=== PATIENT | female | born 1950 | race Caucasian/White ===

== ENCOUNTER 2016-08-04 12:20 | Day surgery (SDC) | payer MEDICARE, OTHER ==
[2016-08-04] MEDS ORDERED: PROPOFOL 10 MG/ML VIAL IV ONE (14:00)
[2016-08-04] MEDS ORDERED: MIDAZOLAM HCL 2MG/2ML VIAL IV ONE (14:00)
[2016-08-04] MEDS ORDERED: LIDOCAINE 2% MDV (20MG/ML) 20ML VIAL IV ONE (14:00)
--- NOTE | 2016-08-09 11:23 | Operative Note ---
DATE OF SURGERY: 08/04/2016 OPERATION: ESOPHAGOGASTRODUODENOSCOPY with Goldman dilation. PREOPERATIVE DIAGNOSIS: Dysphagia and abnormal esophagogram. POSTOPERATIVE DIAGNOSIS: Small hiatal hernia, otherwise normal exam. PROCEDURE: After informed consent was obtained from the patient, she was placed in the left lateral decubitus position in the endoscopy suite, sedated and monitored by the department of anesthesia. A well-lubricated XAL490 gastroscope was placed in the posterior oropharynx and under direct visualization passed to the proximal esophagus. The endoscope was advanced through the proximal, mid, and distal esophagus. There was a small hiatal hernia with a trivial ring at the GE junction. The GE junction was widely patent. No resistance was noted passing the endoscope through the esophagus into the gastric body, antrum, pylorus, duodenal bulb and sweep. The pylorus, duodenal bulb and sweep, gastric body, and antrum were unremarkable. J-turn views of the proximal stomach were unremarkable. The endoscope was then straightened and retracted from the patient. No new findings or abnormalities were identified. At this point, a 52 [place] Goldman dilator was passed to the level of the proximal, mid, and distal esophagus without resistance being noted. There was no heme on the dilator. The patient was taken to the recovery area. Her symptoms should be monitored since the dilation was performed to determine its efficacy. As always, thank you for allowing me to participate in the healthcare of your patients. CC: Qing DESOUZA Dr.
== END 2016-08-04 14:20 | disposition home or self-care (01) ==
LOC: HOP 12:20
PROVIDERS: ATTEND Internal Medicine Gastroenterology
DX: K44.9 Diaphragmatic hernia without obstruction or gangrene (principal); R13.10 Dysphagia, unspecified; E03.9 Hypothyroidism, unspecified

== ENCOUNTER 2017-03-21 20:06 | Emergency (ER) | payer MEDICARE, OTHER ==
[2017-03-21 20:22] LABS: URINE APPEARANCE CLEAR; URINE BILIRUBIN NEGATIVE (NEGATIVE); URINE BLOOD NEGATIVE (NEGATIVE); URINE COLOR YELLOW; URINE KETONE 15 mg/dL (NEGATIVE); URINE LEUKOCYTE ESTERASE NEGATIVE (NEGATIVE); URINE NITRITE NEGATIVE (NEGATIVE); URINE PROTEIN NEGATIVE (NEGATIVE); URINE UROBILINOGEN 0.2 E.U./dL (0.20 - 1.00)
[2017-03-21] MEDS ORDERED: ONDANSETRON 4 MG ODT TABLET SL ONE (20:59)
--- NOTE | 2017-03-21 21:02 | Emergency Department Record ---
History of Present Illness - General Chief complaint: Nausea, Vomiting, Diarrhea Stated complaint: NAUSEA,TINGLING FELLING IN HANDS Time Seen by Provider: 03/21/17 20:36 Source: Patient Mode of Arrival: Ambulatory Limitations: No limitations - History of Present Illness Initial comments: 66 yo female presents to ED for evaluation of an episode of lightheadedness, nausea, and weakness associated with tingling in her hands while using the restroom this evening. Patient reports she was concerned that she was having a heart attack, denies chest pain symptoms or difficulty in breathing symptoms. Patient also reports lower abdominal pain that may be her "colitis" coming back. Patient denies history of heart or lung problems at her baseline. MD complaint: Abdominal pain, Nausea Onset/Timin -: Hour(s) Location: Other (suprapubic region) Severity: Mild Quality: Aching Consistency: Constant Improves with: None Worsens with: None Associated Symptoms: Denies other symptoms - Related Data Allergies Allergy/AdvReac Type Severity Reaction Status Date / Time meperidine HCl [From Demerol] Allergy VOMITING Verified 11/17/15 22:19 Travel Screening - Travel/Exposure Within Last 30 Days Have you traveled within the last 30 days?: No - Travel/Exposure Within Last Year Have you traveled outside the [place] in the last year?: No - Additonal Travel Details Have you been exposed to anyone with a communicable illness?: No - Travel Symptoms Symptom Screening: None Review of Systems Constitutional: Denies: Chills, Fever, Malaise, Night sweats Eyes: Denies: Eye discharge, Eye pain ENT: Denies: Congestion, Ear pain, Epistaxis Respiratory: Denies: Cough, Dyspnea Cardiovascular: Denies: Chest pain, Dyspnea on exertion Endocrine: Denies: Fatigue, Heat or cold intolerance Gastrointestinal: Reports: Abdominal pain, Nausea. Denies: Vomiting Genitourinary: Denies: Incontinence, Retention Musculoskeletal: Denies: Arthralgia, Back pain, Gout, Joint swelling Skin: Denies: Bruising, Change in color Neurological: Denies: Abnormal gait, Confusion, Headache, Seizure Psychiatric: Denies: Anxiety Hematological/Lymphatic: Denies: Anemia, Blood Clots Past Medical History - SOCIAL HISTORY Smoking Status: Former smoker Alcohol Use: None Drug Use: None - RESPIRATORY Hx Respiratory Disorders: Yes Hx Sleep Apnea: Yes Hx of CPAP: No - CARDIOVASCULAR Hx Cardio Disorders: No - NEURO Hx Neuro Disorders: Yes Hx of Migraines: Yes - GI Hx GI Disorders: Yes Hx Reflux: Yes Comment:: dysphagia "clears throat constantly" hx of microscopic colitis - Hx Genitourinary Disorders: No - ENDOCRINE Hx Endocrine Disorders: Yes Hx Thyroid Disease: Yes - MUSCULOSKELETAL Hx Musculoskeletal Disorders: No - PSYCH Hx Psych Problems: Yes Hx Anxiety: Yes - HEMATOLOGY/ONCOLOGY Hx Hematology/Oncology Disorders: Yes Hx Blood Transfusions: Yes (1982 w/ childbirth) Family Medical History Any Significant Family History?: Yes Family Hx Comment (NOT TO BE USED IN PLACE OF ITEMS BELOW): colon problems with brother and niece Hx Cancer: Brother/Sister Hx Heart Disease: Mother Physical Exam - General General Appearance: Alert, Oriented x3, Cooperative, No acute distress Limitations: No limitations - Head Head exam: Atraumatic, Normocephalic, Normal inspection Head exam detail: negative: Abrasion, Contusion, Nash's sign, General tenderness, Hematoma, Laceration - Eye Eye exam: Normal appearance. negative: Conjunctival injection, Periorbital swelling, Periorbital tenderness, Scleral icterus - ENT Ear exam: negative: Auricular hematoma, Auricular trauma Nasal Exam: negative: Active bleeding, Discharge, Dried blood, Foreign body Mouth exam: negative: Drooling, Laceration, Muffled voice, Tongue elevation - Neck Neck exam: Normal inspection. negative: Meningismus, Tenderness - Respiratory Respiratory exam: Normal lung sounds bilaterally. negative: Rales, Respiratory distress, Rhonchi, Stridor - Cardiovascular Cardiovascular Exam: Regular rate, Normal rhythm, Normal heart sounds - GI/Abdominal GI/Abdominal exam: Soft, Tenderness (Mild TTP suprapubic region on examination, no rebound or guarding are present). negative: Rebound, Rigid - Rectal Rectal exam: Deferred - exam: Deferred - Extremities Extremities exam: Normal inspection. negative: Calf tenderness, Pedal edema, Tenderness - Back Back exam: Denies: CVA tenderness (R), CVA tenderness (L) - Neurological Neurological exam: Alert, Normal gait, Oriented X3 - Psychiatric Psychiatric exam: Normal affect, Normal mood - Skin Skin exam: Normal color. negative: Abrasion Type of lesion: negative: abrasion Course Vital Signs 03/21/17 20:35 Temperature 97.6 F Pulse Rate [ 78 Pulse Ox Probe] Respiratory 18 Rate Blood Pressure 135/80 [Left Arm] Pulse Ox 97 - Reevaluation(s) Reevaluation #1: 03/21/17 20:56 EKG: NSR 81 Indeterminate axis, normal intervals No acute ST-T wave changes are present. Reevaluation #2: 03/21/17 21:00 Patient was seen and examined, EKG demonstrates no acute ischemic changes and the patient denies chest pain or dyspnea symptoms. ACS appears unlikely, and further cardiac evaluation does not appear indicated based on her history of symptoms. Discussed imaging of the pelvis for recurrence of colitis with the patient, patient declined. Will obtain basic laboratory studies, administer Zofran, and reassess. Reevaluation #3: 03/21/17 21:40 Labs reviewed and are grossly unremarkable for an acute process. Patient reports that she is feeling back to her baseline and reports that she is ready to go home. Patient declined antibiotics for possible colitis, reports that she will call Dr. Brice and get the medication that he prescribes her (can't remember the name). Medical Decision Making - Lab Data Result diagrams: 03/21/17 21:10 03/21/17 21:10 Lab Results 03/21/17 Range/Units 20:22 Urine Color Yellow Urine Appearance Clear Urine pH 5.5 (5.0-8.0) Ur Specific [place] >= 1.030 (1.002-1.030) Urine Protein Negative (NEGATIVE) Urine Glucose (UA) 100 mg/dl H (NEGATIVE) Urine Ketones 15 mg/dl H (NEGATIVE) Urine Blood Negative (NEGATIVE) Urine Nitrite Negative (NEGATIVE) Urine Bilirubin Negative (NEGATIVE) Urine Urobilinogen 0.2 (0.20 - 1.00) E.U./dL Ur Leukocyte Esterase Negative (NEGATIVE) Disposition Disposition: Discharge Clinical Impression: Nausea Disposition: Home, Self-Care Condition: (2) Stable Instructions: Acute Nausea and Vomiting (ED), Near Syncope (ED) Additional Instructions: Return to ED if your symptoms worsen or if you have any concerns. Follow-up with your family doctor in 3-5 days as directed. Forms: Patient Portal Access Time of Disposition: 21:43 Quality - Quality Measures Quality Measures: N/A - Blood Pressure Screening Does Patient Have Any of the Following: No Blood Pressure Classification: Pre-Hypertensive BP Reading Systolic Measurement: 135 Diastolic Measurement: 80 Screening for High Blood Pressure: < Pre-Hypertensive BP, F/U Documented > [ [id number]] Pre-Hypertensive Follow-up Interventions: Referral to alternative/primary care provider.
[2017-03-21 21:30] LABS: BASO % 0.1 % (0-6); HEMATOCRIT 41.2 % (35.0-47.0); HEMOGLOBIN 13.6 gm/dl (11.6-16.0); LYMPH % 16.6 % (16-45); MEAN CELL VOLUME 87.1 fl (81-97); MEAN CORPUSCULAR HEMOGLOBIN 28.8 pg (27-33); MEAN PLATELET VOLUME 10.4 fl (7.4-10.4); MONO % 9.3 % (0-9); PLATELET COUNT 226 K/uL (130-400); RED BLOOD COUNT 4.73 M/uL (3.80-5.40); RED CELL DISTRIBUTION WIDTH 14.9 % (11.5-14.5)
[2017-03-21 21:32] LABS: CREATININE 1.2 mg/dL (0.5-0.9)
[2017-03-21 21:33] LABS: BILIRUBIN,TOTAL 0.2 mg/dL (0.2-1.0); TOTAL PROTEIN 6.3 g/dL (6.6-8.7)
[2017-03-21 21:38] LABS: ALB/GLOB RATIO 1.4 (1.1-1.8); ALBUMIN 3.7 g/dL (4.0-5.0)
== END 2017-03-21 21:55 | disposition home or self-care (01) ==
LOC: ER 20:06
DX: R11.2 Nausea with vomiting, unspecified (principal); R42 Dizziness and giddiness; R19.7 Diarrhea, unspecified; R53.1 Weakness; R10.9 Unspecified abdominal pain; R20.2 Paresthesia of skin
CPT/HCPCS: 80053; 81003; 85025; 93005; 93010; 99284